=== PATIENT | female | born 1980 | race African-American/Black ===

== ENCOUNTER 2021-04-16 15:19 | Inpatient (IN) | payer MEDICAID ==
[~2021-04-16] VITALS: Ht 167.6 cm; Wt 70.0 kg
[2021-04-16] MEDS ORDERED: LABETALOL 5MG/ML SYR 20 MG/4 ML SYRINGE IV ONE ×2 (16:15→17:45)
[2021-04-16 17:20] LABS: BASOPHILS % 0.4 % (0.0-2.0); EOSINOPHILS % 0.3 % (0.0-5.0); HEMATOCRIT. 41.9 % (36.0-48.0); HEMOGLOBIN. 14.6 g/dL (12.0-16.0); MEAN CORPUSCULAR HEMOGLOBIN 29.2 pg (28.0-32.0); MEAN CORPUSCULAR VOLUME 83.8 fL (81.0-99.0); MEAN PLATELET VOLUME 8.9 fl (7.4-10.4); NEUTROPHILS % 57.3 % (40.0-76.0); PLATELET 146 x1000/uL (130-400); RED CELL DISTRIBUTION WIDTH 12.5 % (11.6-14.6)
[2021-04-16 17:27] LABS: CHLORIDE 106 mEq/L (98-107)
[2021-04-16] MEDS ORDERED: NITROGLYCERIN 0.4MG TABLET SL SL ONE (18:30)
[2021-04-16] MEDS ORDERED: HYDRALAZINE 20MG/ML VIAL IV ONE (18:30)
[2021-04-16] MEDS ORDERED: ASPIRIN 81MG TABLET PO ONE (18:30)
[2021-04-17] MEDS ORDERED: CLONIDINE 0.1MG TABLET PO NR (00:30)
[2021-04-17] MEDS ORDERED: DILT120T13 MT (12:04)
[2021-04-17] MEDS ORDERED: TAP5 MT (12:04)
[2021-04-17] MEDS ORDERED: METHIMAZOLE 5MG TABLET PO SCH (12:15)
[2021-04-17 14:51] VITALS: BP 144/90
== END 2021-04-17 14:53 | disposition home or self-care (01) | DRG 199 ==
LOC: ER 15:19 → MICUSO 22:04
PROVIDERS: ADMIT Internal Medicine; ATTEND Internal Medicine
DX: I16.1 Hypertensive emergency (principal); D72.819 Decreased white blood cell count, unspecified; E03.9 Hypothyroidism, unspecified; E05.90 Thyrotoxicosis, unspecified without thyrotoxic crisis or storm; I10 Essential (primary) hypertension; Z82.49 Family history of ischemic heart disease and other diseases of the circulatory system; Z91.14 Patient's other noncompliance with medication regimen
CPT/HCPCS: 36415; 71045; 80053; 83735; 83880; 84443; 84484; 85025; 93005; 99291; J0360; J3490